=== PATIENT | female | born 1970 | race Caucasian/White ===

== ENCOUNTER 2018-07-21 22:22 | Emergency (ER) | payer OTHER ==
[~2018-07-21] VITALS: Wt 69.6 kg
[2018-07-21] MEDS ORDERED: SODIUM CHLORIDE 0.9% 1L BAG IV* STA (22:31)
[2018-07-21] MEDS ORDERED: CEFTRIAXONE 1 GM/50 ML (PMX) 50 ML IVPB STA (22:31)
[2018-07-21] MEDS ORDERED: KETOROLAC 15 MG INJ IV ONE (23:26)
[2018-07-22] MEDS ORDERED: CEPH-443 PO (00:36)
--- NOTE | 2018-07-22 00:55 | ERD ---
ER Documentation Chief Complaint Chief Complaint bilateral flank pain/fever/chills since yesterday ROS All systems reviewed and are negative except as per history of present illness. Medications Home Meds Active Scripts Cephalexin* (Keflex*) 500 Mg Capsule, 500 MG PO QID for 10 Days, CAP Prov:LISA ROMO MD 07/22/18 Allergies Allergies: Coded Allergies: No Known Drug Allergies (Verified Allergy, Unknown, 07/21/18) PMhx/Soc Medical and Surgical Hx: pt denies Surgical Hx History of Surgery: No Anesthesia Reaction: No Hx Neurological Disorder: No Hx Respiratory Disorders: No Hx Cardiac Disorders: Yes (HTN ) Hx Psychiatric Problems: No Hx Miscellaneous Medical Probl: No Hx Alcohol Use: Yes (FORMER ) Hx Substance Use: Yes (FORMER ) Hx Tobacco Use: Yes Smoking Status: Former smoker Physical Exam Vitals Vital Signs Date Temp Pulse Resp B/P (MAP) Pulse Ox O2 O2 Flow FiO2 Time Delivery Rate 07/22/18 98.6 00:00 07/21/18 102.7 130 18 125/83 98 22:27 (97) Physical Exam Const: No acute distress Head: Atraumatic Eyes: Normal Conjunctiva ENT: Normal External Ears, Nose and Mouth. Neck: Full range of motion. No meningismus. Resp: Clear to auscultation bilaterally Cardio: Regular rate and rhythm, no murmurs Abd: Soft, non tender, non distended. Normal bowel sounds Skin: No petechiae or rashes Back: No midline or flank tenderness Ext: No cyanosis, or edema Neur: Awake and alert Psych: Normal Mood and Affect Result Diagram: 07/21/18 2310 07/21/18 2310 Results 24 hrs Laboratory Tests Test 07/21/18 23:09 07/21/18 23:10 Prothrombin Time 12.6 Sec Prothrombin Time Ratio 1.0 INR International Normalized Ratio 0.93 Activated Partial Thromboplast Time 29.8 Sec White Blood Count 15.2 10^3/ul Red Blood Count 4.21 10^6/ul Hemoglobin 12.4 g/dl Hematocrit 37.1 % Mean Corpuscular Volume 88.1 fl Mean Corpuscular Hemoglobin 29.5 pg Mean Corpuscular Hemoglobin Concent 33.4 g/dl Red Cell Distribution Width 13.0 % Platelet Count 267 10^3/UL Mean Platelet Volume 10.5 fl Immature Granulocytes % 0.500 % Neutrophils % 79.0 % Lymphocytes % 9.7 % Monocytes % 10.3 % Eosinophils % 0.2 % Basophils % 0.3 % Nucleated Red Blood Cells % 0.0 /100WBC Immature Granulocytes # 0.080 10^3/ul Neutrophils # 12.0 10^3/ul Lymphocytes # 1.5 10^3/ul Monocytes # 1.6 10^3/ul Eosinophils # 0.0 10^3/ul Basophils # 0.0 10^3/ul Nucleated Red Blood Cells # 0.0 10^3/ul Urine Color YELLOW Urine Clarity SLIGHTLY CLOUDY Urine pH 5.0 Urine Specific [place] 1.014 Urine Ketones NEGATIVE mg/dL Urine Nitrite NEGATIVE mg/dL Urine Bilirubin NEGATIVE mg/dL Urine Urobilinogen NEGATIVE mg/dL Urine Leukocyte Esterase TRACE [place]/ul Urine Microscopic RBC 20 /HPF Urine Microscopic WBC 32 /HPF Urine Bacteria FEW /HPF Urine Hemoglobin 3+ mg/dL Urine Glucose NEGATIVE mg/dL Urine Total Protein NEGATIVE mg/dl Sodium Level 138 mmol/L Potassium Level 3.6 mmol/L Chloride Level 104 mmol/L Carbon Dioxide Level 24 mmol/L Anion Gap 10 Blood Urea Nitrogen 11 mg/dl Creatinine 0.59 mg/dl Est Glomerular Filtrat Rate mL/min > 60 mL/min Glucose Level 102 mg/dl Lactic Acid Level 1.8 mmol/L POC Venous Lactate 1.5 mmol/L Calcium Level 9.0 mg/dl Total Bilirubin 0.4 mg/dl Direct Bilirubin 0.00 mg/dl Indirect Bilirubin 0.4 mg/dl Aspartate Amino Transf (AST/SGOT) 27 IU/L Alanine Aminotransferase (ALT/SGPT) 25 IU/L Alkaline Phosphatase 76 IU/L Troponin I < 0.012 ng/ml Total Protein 8.2 g/dl Albumin 4.3 g/dl Globulin 3.90 g/dl Albumin/Globulin Ratio 1.10 Current Medications Medications Dose Sig/Ankita Start Time Status Last (Trade) Ordered Route PRN Stop Time Admin Dose Reason Admin Sodium 2,090 ml BOLUS OVER 2 07/21/18 DC 07/21/18 Chloride HOURS STAT 22:31 23:12 (NS) IV* 07/21/18 22:32 Ceftriaxone 50 ml @ ONCE STAT 07/21/18 DC 07/21/18 Sodium 100 mls/hr IVPB 22:31 23:12 5/31/19 23:00 Ketorolac 15 mg ONCE ONCE 07/21/18 DC 07/21/18 Tromethamine IV 23:26 23:30 (Toradol) 07/21/18 23:27 Procedures/MDM This is a 47-year-old female who presents for evaluation of flank pain. Initially code sepsis was called and patient was treated with IV fluids. Her UA was positive and she has a history of prior UTIs. She was givent CTX. She had no peritoneal signs on abdominal exam, and I don't suspect infected kidney stone given that she has bilateral flank, no significant hematuria, and no prior history of stones. On re-assessment, she felt significantly better. Shared decision making made to treat as outpatient as she remained hemodynamically stable with no evidence of organ damage. Strict return precautions given. At DC she was in no distress. EKG: Rate/Rhythm: Normal Sinus Rhythm at a rate of 95 QRS, ST, T-waves: No changes consistent w/ acute ischemia Impression: No evidence of ischemia or arrhythmia Departure Diagnosis: Primary Impression: Flank pain Additional Impression: Pyelonephritis Condition: Stable Patient Instructions: Pyelonephritis, Female (Adult) Additional Instructions: Call your primary care doctor TOMORROW for an appointment during the next 2-3 days.See the doctor sooner or return here if your condition worsens before your appointment time. LISA ROMO MD Jul 22, 2018 00:55
[2018-07-22 01:09] VITALS: BP 114/58; PULSE 78; RESP 14
== END 2018-07-22 01:11 | disposition home or self-care (01) ==
LOC: E/R 22:22
DX: N12 Tubulo-interstitial nephritis, not specified as acute or chronic (principal)
CPT/HCPCS: 36415; 71045; 80053; 81001; 83605; 84484; 85025; 85610; 85730; 87040; 87086; 93005; 96374; 96375; J0696; J1885; J7030; Z7502